=== PATIENT | male | born 1965 | race Caucasian/White ===

== ENCOUNTER 2021-12-12 08:33 | Inpatient (IN) | payer OTHER ==
[~2021-12-12] VITALS: Ht 177.8 cm; Wt 80.3 kg
[2021-12-12 14:43] LABS: BASOPHILS # (AUTO) 0.1 X10'3 (0-0.2); BASOPHILS % (AUTO) 0.8 % (0-1); EOSINOPHILS % (AUTO) 0.5 % (0-6); HEMATOCRIT 43.2 % (42.0-52.0); HEMOGLOBIN 14.9 g/dl (14.0-17.9); LYMPHOCYTES # (AUTO) 1.7 X10'3 (1.1-4.8); LYMPHOCYTES % (AUTO) 20.4 % (21-51); MEAN CORPUSCULAR HEMOGLOBIN 35.4 PG (27.0-31.0); MEAN CORPUSCULAR HGB CONC 34.4 g/dL (33.0-36.5); MEAN CORPUSCULAR VOLUME 102.8 FL (78-98); MEAN PLATELET VOLUME 7.9 FL (7.4-10.4); MONOCYTES % (AUTO) 11.9 % (2-12); NEUTROPHILS # (AUTO) 5.5 X10'3 (1.8-7.7); NEUTROPHILS % (AUTO) 66.4 % (42-75); PLATELET COUNT 262 X10'3 (140-440); RED BLOOD COUNT 4.21 X10'6 (4.70-6.10); RED CELL DISTRIBUTION WIDTH 14.1 % (11.5-14.5); WHITE BLOOD COUNT 8.3 X10'3 (4.5-11.0)
[2021-12-12 15:03] LABS: ALANINE AMINOTRANSFERASE 58 U/L (12-78); ALBUMIN 3.3 G/DL (3.4-5.0); ALBUMIN/GLOBULIN RATIO 0.9 (1.1-1.5); ALKALINE PHOSPHATASE 49 IU/L (46-116); ANION GAP 12 (8-16); ASPARTATE AMINO TRANSFERASE 31 U/L (10-37); BLOOD UREA NITROGEN 16 MG/DL (7-18); BUN/CREATININE RATIO 17.4 (5.4-32.0); CALCIUM 8.8 MG/DL (8.5-10.1); CHLORIDE 104 MMOL/L (99-107); CREATININE 0.92 MG/DL (0.60-1.10); GLUCOSE 108 MG/DL (70-104); POTASSIUM 4.5 MMOL/L (3.5-5.1); SODIUM 140 MMOL/L (135-145); TOTAL CARBON DIOXIDE 23.8 MMOL/L (24-32); TOTAL PROTEIN 6.8 G/DL (6.4-8.2); eGFR 85 ML/MIN
[2021-12-12] MEDS ORDERED: POTASSIUM BICARB 20meq eff tab 20 MEQ TABLET.EFF PO PRN ×2 (16:00)
[2021-12-12] MEDS ORDERED: magnesium Cl slow-release 64mg tablet PO PRN (16:00)
[2021-12-12] MEDS ORDERED: magnesium 2GM in 50ml NS 50 ML IV PRN (16:00)
[2021-12-12] MEDS ORDERED: HYDROcodone/acetaminophen 5mg/325mg tablet PO PRN (16:00)
[2021-12-12] MEDS ORDERED: ondansetron/PF 4mg/2ml inj IV PRN (16:00)
[2021-12-12] MEDS ORDERED: acetaminophen 325mg tablet PO PRN ×2 (16:00)
[2021-12-12] MEDS ORDERED: morphine 2 MG/ML inj. syringe IV PRN (16:00)
[2021-12-12] MEDS ORDERED: magnesium 4gm in 100ml NS 100 ML IV PRN (16:00)
[2021-12-12] MEDS ORDERED: potassium CL 10mEq/100ml bag 100 ML IV PRN (16:00)
[2021-12-12] MEDS ORDERED: LORazepam 1 MG tablet PO PRN (16:10)
[2021-12-12] MEDS ORDERED: LORazepam 2 mg/ml vial IV PRN (16:10)
[2021-12-12] MEDS ORDERED: NO HOME MEDS (16:30)
[2021-12-12 16:33] LABS: ETHANOL < 0.010 GM/DL (0.0-0.010)
--- NOTE | 2021-12-12 16:43 | NUR ---
us at bedside
[2021-12-12] MEDS: furosemide 40mg/4ml inj IV SCH ×2 (17:19→21:05)
--- NOTE | 2021-12-12 18:01 | NUR ---
LAB CALLED WITH CRITICAL VALUE OF TROPONIN 185 PAGER ID: [phone] MESSAGE: ER BED 7 [facility]. LAB CALLED WITH REPEAT TROPONIN LEVEL OF 185. THANK YOU, BRANNON GARDUNO AT [id number]
[2021-12-12] MEDS: amiodarone 200mg tablet PO SCH ×2 (18:30→20:00)
[2021-12-12 18:48] LABS: BILIRUBIN,DIRECT 0.2 MG/DL (0-0.3)
[2021-12-12 18:53] LABS: URINE AMPHETAMINE SCREEN NEGATIVE (Neg); URINE BARBITUATE SCREEN NEGATIVE (Neg); URINE BENZODIAZEPINES SCREEN NEGATIVE (Neg); URINE CANNABINOID SCREEN NEGATIVE (Neg); URINE COCAINE SCREEN NEGATIVE (Neg); URINE METHADONE SCREEN NEGATIVE (Neg); URINE OPIATE SCREEN NEGATIVE (Neg); URINE PHENCYCLIDINE SCREEN NEGATIVE (Neg)
[2021-12-12 20:00] VITALS: BP 108/80
[2021-12-12] MEDS: K and/or MAG REPLACEMENT MC SCH (20:00)
[2021-12-12] MEDS ORDERED: temazepam 15mg capsule PO PRN (21:00)
[2021-12-12] MEDS: carvedilol 6.25mg tablet PO SCH (21:02)
[2021-12-12] MEDS: heparin, porcine 5000 units/ml vial SQ SCH (21:04)
[2021-12-12 22:00] VITALS: BP 110/76
[2021-12-13] VITALS (7 sets, daily range): BP systolic 94–115; BP diastolic 62–79
[2021-12-13 07:03] LABS: BASOPHILS # (AUTO) 0.1 X10'3 (0-0.2); BASOPHILS % (AUTO) 0.8 % (0-1); EOSINOPHILS % (AUTO) 0.6 % (0-6); HEMATOCRIT 41.5 % (42.0-52.0); LYMPHOCYTES # (AUTO) 1.7 X10'3 (1.1-4.8); LYMPHOCYTES % (AUTO) 21.6 % (21-51); MEAN CORPUSCULAR HEMOGLOBIN 34.8 PG (27.0-31.0); MEAN CORPUSCULAR HGB CONC 33.8 g/dL (33.0-36.5); MEAN CORPUSCULAR VOLUME 102.8 FL (78-98); MEAN PLATELET VOLUME 8.7 FL (7.4-10.4); MONOCYTES % (AUTO) 12.7 % (2-12); NEUTROPHILS # (AUTO) 5.1 X10'3 (1.8-7.7); NEUTROPHILS % (AUTO) 64.3 % (42-75); PLATELET COUNT 251 X10'3 (140-440); RED BLOOD COUNT 4.03 X10'6 (4.70-6.10); RED CELL DISTRIBUTION WIDTH 14.2 % (11.5-14.5)
[2021-12-13 07:06] LABS: ALANINE AMINOTRANSFERASE 51 U/L (12-78); ALKALINE PHOSPHATASE 46 IU/L (46-116); ANION GAP 13 (8-16); ASPARTATE AMINO TRANSFERASE 30 U/L (10-37); BILIRUBIN,TOTAL 1.2 MG/DL (0.1-1.0); BLOOD UREA NITROGEN 16 MG/DL (7-18); CALCIUM 8.4 MG/DL (8.5-10.1); CHLORIDE 103 MMOL/L (99-107); CREATININE 1.07 MG/DL (0.60-1.10); GLUCOSE 98 MG/DL (70-104); LIPASE 74 U/L (73-393); POTASSIUM 3.9 MMOL/L (3.5-5.1); SODIUM 141 MMOL/L (135-145); TOTAL CARBON DIOXIDE 25.3 MMOL/L (24-32); TOTAL PROTEIN 6.1 G/DL (6.4-8.2); eGFR 71 ML/MIN
[2021-12-13] MEDS: amiodarone 200mg tablet PO SCH ×2 (07:48→19:26)
[2021-12-13] MEDS: carvedilol 6.25mg tablet PO SCH ×2 (07:48→19:25)
[2021-12-13] MEDS: heparin, porcine 5000 units/ml vial SQ SCH ×2 (07:48→19:25)
[2021-12-13] MEDS: furosemide 40mg/4ml inj IV SCH ×2 (07:48→20:00)
[2021-12-13] MEDS: pantoprazole 40mg Tablet.DR PO SCH (07:48)
[2021-12-13] MEDS: K and/or MAG REPLACEMENT MC SCH ×2 (08:00→19:16)
[2021-12-13] MEDS ORDERED: furosemide 40mg/4ml inj IV SCH (09:45)
[2021-12-13 11:17] LABS: CHOLESTEROL 186 MG/DL (0-200); HDL CHOLESTEROL 47 MG/DL (35-60); LDL CHOLESTEROL 122 MG/DL (50-100); TRIGLYCERIDES 92 MG/DL (20-135)
--- NOTE | 2021-12-13 12:02 | NUR ---
Paged Dr. Chavarria [phone].Chaitanya. Need clarification of medication order.
--- NOTE | 2021-12-13 12:15 | NUR ---
Karley Galarza, STEPHANIE [id number] D.W. Clarification on medication orders.
[2021-12-13] MEDS ORDERED: amiodarone 200mg tablet PO ONE (12:30)
--- NOTE | 2021-12-13 12:31 | NUR ---
[id number] Spoke with STEPHANIE Galarza ok to give medications as ordered.
[2021-12-13] MEDS: CefTRIAXone 2gm/D5W 50ml BAG 50 ML IV SCH (13:04)
[2021-12-13] MEDS: spironolactone 25 MG tablet PO SCH (13:13)
[2021-12-13] MEDS ORDERED: metoprolol tartrate 1mg/ml inj IV PRN (13:25)
[2021-12-13] MEDS ORDERED: aminophylline 500mg/20ml vial IV PRN (13:25)
[2021-12-13] MEDS ORDERED: regadenoson 0.4mg/5ml syringe IV PRN (13:25)
[2021-12-13] MEDS ORDERED: nitroGLYCERIN 0.4mg SUBLingual tab SL PRN (13:25)
--- NOTE | 2021-12-13 15:01 | NUR ---
Notified Dr. Chavarria [id number] D.W. Wants to be discharged early tomorrow morning. Pt stated that he has a meeting he has to go to in the am.
--- NOTE | 2021-12-13 15:04 | NUR ---
Notified Michell [id number] D.W. Wants to be discharged early tomorrow morning. Pt stated that he has a meeting he has to go to in the am. Edith [facility]
--- NOTE | 2021-12-13 15:06 | NUR ---
Spoke with Dr. Chavarria and Michell BROWN, both stated that patient will not be medically clear to discharge at this time. Educated patient on reason why discharge will not be safe per MDs. Will continue to monitor.
--- NOTE | 2021-12-13 18:40 | NUR ---
Problems reprioritized. Patient report given, questions answered & plan of care reviewed with Dan. [facility].
[2021-12-14] VITALS (11 sets, daily range): BP systolic 98–109; BP diastolic 61–74
--- NOTE | 2021-12-14 05:23 | NUR ---
REVIEWED [employer]INEER ASSESSMENT AND IN AGREEMENT.
--- NOTE | 2021-12-14 06:34 | NUR ---
Problems reprioritized. Patient report given, questions answered & plan of care reviewed with micha.
[2021-12-14] MEDS: carvedilol 6.25mg tablet PO SCH (07:18)
[2021-12-14] MEDS: pantoprazole 40mg Tablet.DR PO SCH (07:18)
[2021-12-14] MEDS: amiodarone 200mg tablet PO SCH (07:18)
[2021-12-14 07:20] LABS: BASOPHILS # (AUTO) 0.1 X10'3 (0-0.2); BASOPHILS % (AUTO) 0.9 % (0-1); EOSINOPHILS # (AUTO) 0.1 X10'3 (0-0.9); EOSINOPHILS % (AUTO) 1.2 % (0-6); HEMATOCRIT 40.5 % (42.0-52.0); LYMPHOCYTES # (AUTO) 1.9 X10'3 (1.1-4.8); MEAN CORPUSCULAR HEMOGLOBIN 35.8 PG (27.0-31.0); MEAN CORPUSCULAR HGB CONC 34.6 g/dL (33.0-36.5); MEAN CORPUSCULAR VOLUME 103.6 FL (78-98); MEAN PLATELET VOLUME 8.7 FL (7.4-10.4); NEUTROPHILS # (AUTO) 4.8 X10'3 (1.8-7.7); NEUTROPHILS % (AUTO) 60.9 % (42-75); PLATELET COUNT 255 X10'3 (140-440); RED BLOOD COUNT 3.91 X10'6 (4.70-6.10); RED CELL DISTRIBUTION WIDTH 14.1 % (11.5-14.5); WHITE BLOOD COUNT 7.9 X10'3 (4.5-11.0)
[2021-12-14 07:35] LABS: ALANINE AMINOTRANSFERASE 59 U/L (12-78); ALBUMIN/GLOBULIN RATIO 0.9 (1.1-1.5); ALKALINE PHOSPHATASE 43 IU/L (46-116); ANION GAP 12 (8-16); ASPARTATE AMINO TRANSFERASE 31 U/L (10-37); BILIRUBIN,TOTAL 0.8 MG/DL (0.1-1.0); BLOOD UREA NITROGEN 20 MG/DL (7-18); BUN/CREATININE RATIO 16.4 (5.4-32.0); CALCIUM 8.6 MG/DL (8.5-10.1); CHLORIDE 101 MMOL/L (99-107); CREATININE 1.22 MG/DL (0.60-1.10); GLUCOSE 96 MG/DL (70-104); LIPASE 93 U/L (73-393); POTASSIUM 3.6 MMOL/L (3.5-5.1); SODIUM 140 MMOL/L (135-145); TOTAL CARBON DIOXIDE 27.4 MMOL/L (24-32); TOTAL PROTEIN 6.2 G/DL (6.4-8.2); eGFR 61 ML/MIN
[2021-12-14] MEDS: K and/or MAG REPLACEMENT MC SCH (08:00)
[2021-12-14] MEDS: heparin, porcine 5000 units/ml vial SQ SCH (08:00)
[2021-12-14] MEDS: CefTRIAXone 2gm/D5W 50ml BAG 50 ML IV SCH (08:00)
[2021-12-14] MEDS: furosemide 40mg/4ml inj IV SCH (08:00)
--- NOTE | 2021-12-14 08:23 | NUR ---
pt leaving unit for bhanu scan now.
[2021-12-14] MEDS: spironolactone 25 MG tablet PO SCH (08:30)
[2021-12-14] MEDS ORDERED: aminophylline inj. 0 ML IV ONE (09:18)
[2021-12-14] MEDS ORDERED: LISI2.5T14 PO (14:21)
[2021-12-14] MEDS ORDERED: AMIO200T67 PO (14:21)
[2021-12-14] MEDS ORDERED: ASPI81TA53 PO (14:21)
[2021-12-14] MEDS ORDERED: SPIR25TA PO (14:21)
[2021-12-14] MEDS ORDERED: CARV6.253 PO (14:21)
[2021-12-14] MEDS ORDERED: ATOR20TA66 PO (14:21)
[2021-12-14] MEDS ORDERED: PANT40TA54 PO (14:32)
[2021-12-14] MEDS ORDERED: APIX5TAB3 PO (15:04)
--- NOTE | 2021-12-14 15:15 | NUR ---
Discharged instructions discussed with patient. All questions answered and pt states he understands. IV discontinued. Pt will ambulate on own when leaving the unit.
[2021-12-14] MEDS ORDERED: apixaban 5mg tablet PO SCH (20:00)
[2021-12-14] MEDS ORDERED: amiodarone 200mg tablet PO SCH (20:00)
[2021-12-15] MEDS ORDERED: lisinopril 2.5mg tablet PO SCH (08:00)
[2021-12-15] MEDS ORDERED: atorvastatin 20mg tablet PO SCH (08:00)
[2021-12-15] MEDS ORDERED: aspirin 81mg tab.chew PO SCH (08:30)
== END 2021-12-14 15:25 | disposition home or self-care (01) | DRG 292 ==
LOC: ER 08:33 → ED HOLD 16:06 → PCU 3S 19:35
PROVIDERS: ADMIT Internal Medicine; ATTEND Internal Medicine
PROC: 4A02XM4 Measurement of Cardiac Total Activity, External Approach (ICD-10-PCS; principal; 2021-12-14)
PROC: 3E033HZ Introduction of Radioactive Substance into Peripheral Vein, Percutaneous Approach (ICD-10-PCS; 2021-12-14)
DX: I50.23 Acute on chronic systolic (congestive) heart failure (principal); I24.8 Other forms of acute ischemic heart disease; I42.9 Cardiomyopathy, unspecified; G47.30 Sleep apnea, unspecified; I48.91 Unspecified atrial fibrillation; Z20.822 Contact with and (suspected) exposure to COVID-19; R91.8 Other nonspecific abnormal finding of lung field; K44.9 Diaphragmatic hernia without obstruction or gangrene; K59.00 Constipation, unspecified; Z87.891 Personal history of nicotine dependence; Z88.0 Allergy status to penicillin; Z72.89 Other problems related to lifestyle
CPT/HCPCS: 36415; 71045; 78452; 80053; 80061; 80305; 80320; 82248; 83605; 83690; 83880; 84439; 84443; 84484; 85025; 87040; 87081; 87811; 92508; 92616; 93005; 93017; 93306; 97161; 99285; A9500; G0378; J0280; J0696; J1644; J1940; J2785; J7040